=== PATIENT | male | born 1955 | race Caucasian/White ===

== ENCOUNTER 2017-03-16 06:12 | Day surgery (SDC) | payer BC ==
[2017-03-16] VITALS (11 sets, daily range): BP systolic 115–163; BP diastolic 76–101; PULSE 64–83; RESP 18–20; TEMP 97.5–98.9; O2SAT 92–95
[~2017-03-16] VITALS: Ht 182.9 cm; Wt 100.0 kg
[2017-03-16] MEDS ORDERED: LOSA25TA PO (06:50)
[2017-03-16] MEDS ORDERED: BOSW5TAB (06:50)
[2017-03-16] MEDS ORDERED: ASPI325T33 PO (06:50)
[2017-03-16] MEDS ORDERED: SIMV40TA PO (06:50)
[2017-03-16] MEDS ORDERED: HYDR-3516 PO (06:50)
[2017-03-16] MEDS ORDERED: CYCL10TA PO (06:50)
[2017-03-16] MEDS ORDERED: ONETAB26 (06:50)
[2017-03-16] MEDS ORDERED: CIME800T PO (06:50)
[2017-03-16] MEDS ORDERED: POVIDONE IODINE 5% (ANTISEPSIS KIT) 4 APPLICATIONS EACH NARE SCH (07:00)
[2017-03-16] MEDS ORDERED: VANCOMYCIN 1000 MG/NS 250 ML - implanted port/tunneled catheter IV SCH ×2 (07:00)
[2017-03-16] MEDS ORDERED: CHLORHEXIDINE GLUCONATE 2 % 1 PACK (2 CLOTHS) TOPICAL SCH (07:00)
[2017-03-16] MEDS ORDERED: MUPIROCIN 2% OINT 1 APPLIC/GM SYR EACH NARE SCH (07:00)
[2017-03-16] MEDS ORDERED: SODIUM CHLORIDE 0.9% 1000 ML IV SCH (07:00)
[2017-03-16] MEDS ORDERED: ceFAZolin 2 GM PREMIX 50 ML - implanted port/tunneled catheter insertion IV SCH (07:00)
[2017-03-16] MEDS ORDERED: LIDOCAINE HCL 1% 20 ML VIAL ONE (07:40)
[2017-03-16] MEDS ORDERED: MIDAZOLAM HCL 2 MG/2 ML VIAL ONE ×2 (07:54→12:57)
--- NOTE | 2017-03-16 09:10 | PD.RAD ---
Post CT Procedure Prog Note Pre Procedure Diagnosis: (1) Lung nodule Post Procedure Diagnosis: (1) Lung nodule Procedure Date: Mar 16, 2017 Supervising Radiologist: Doug Stevens Estimated blood loss: minimal Anesthesia: Conscious Sedation Plan of Activity Patient to Unit: [facility] Patient Condition: Good See PACS Report for procedural detail/treatment Biopsy Imaging Guidance: CT Side: Left Biopsy Procedure: Lung Site: left lower lobe Specimen: Core Biopsy Plan to [facility] for monitoring then discharge in 4 hours Doug Stevens MD Mar 16, 2017 09:10
--- NOTE | 2017-03-16 09:28 | RADRPT ---
EXAM DATE/TIME: 03/16/2017 08:37 [facility] COMPARISON: No previous studies available for comparison. INDICATIONS : Left lung biopsy SEDATION TIME: 30 minutes BIOPSY SITE: Left lung MEDICATION(S): 1.) 1.5 midazolam (Versed) IV 2.) 75 fentanyl (Sublimaze) IV DEVICE(S): 1.) 18 gauge Perez blunt needle 2.) 20 gauge Temno core biopsy needle MEDICAL HISTORY : None. SURGICAL HISTORY : None. ENCOUNTER: Initial ACUITY: 1 day PAIN SCORE: 0/10 LOCATION: Left lower chest A total of five core specimen(s) were obtained and sent to the laboratory for pathologic evaluation. PROCEDURE: 1. CT guided lung biopsy. 2. Conscious sedation with continuous EKG and oximetry monitoring. 3. EKG and oximetry remained stable throughout the procedure. Prior to the procedure informed consent was obtained. Any appropriate prior imaging studies were rev iewed. Using automated exposure control and adjustment of the mA and/or kV according to patient size, radiation dose was kept as low as reasonably achievable to obtain optimal diagnostic quality images. DICOM format image data is available electronically for review and comparison. The site was prepped in a sterile fashion. Full sterile technique was used, including cap, mask, charles rile gloves and gown and a large sterile sheet. Hand hygiene and 2% chlorhexidine and/or betadine/al cohol prep was utilized per protocol for cutaneous antisepsis. The skin and subcutaneous tissues wer e infiltrated with local anesthetic solution. With CT guidance the left lower lobe lung nodule was localized. Biopsy was performed using the prescr ibed needle as above. Adequate hemostasis was obtained with compression at the puncture site. Follow-up CT scan reveals no pneumothorax. There is mild perilesional hemorrhage. Conscious sedation was performed with the prescribed dosages and duration as above in the presence of an independent trained radiology nurse to assist in the monitoring of the patient. EKG and oximetry remained stable throughout the procedure. The patient tolerated the procedure well and there were no complications. The patient was sent to Radiology Outpatient Unit in stable condition. CONCLUSION: Uncomplicated CT guided biopsy of the left lower lobe nodule. Doug Stevens MD on March 16, 2017 at 9:25 Board Certified Radiologist. This report was verified electronically.
[2017-03-16] MEDS ORDERED: ACETAMINOPHEN/HYDROcodone 325 MG/5 MG TAB PO ONE (10:00)
--- NOTE | 2017-03-16 10:57 | RADRPT ---
EXAM DATE/TIME: 03/16/2017 10:29 [facility] COMPARISON: No previous studies available for comparison. INDICATIONS : Evaluate for pneumothorax. Patient had a left lung biopsy. MEDICAL HISTORY : None. SURGICAL HISTORY : None. ENCOUNTER: Initial ACUITY: 1 day PAIN SCORE: 10 LOCATION: Left chest FINDINGS: A single frontal expiratory view of the chest was performed. The lungs are symmetrically aerated and clear. No evidence of pneumothorax. Mediastinal structures are in the midline. Multiple pulmonary nodules again noted. CONCLUSION: Multiple pulmonary nodules. No evidence of pneumothorax. Gerardo Smith MD on March 16, 2017 at 10:54 Board Certified Radiologist. This report was verified electronically.
[2017-03-16] MEDS ORDERED: SODIUM CHLORIDE 0.9% FLUSH 10 ML FLUSH IVF PRN (13:30)
--- NOTE | 2017-03-16 13:30 | PD.RAD ---
Post Procedure Progress Note Pre Procedure Diagnosis: (1) Lung nodule Post Procedure Diagnosis: (1) Lung nodule Procedure Date: Mar 16, 2017 Supervising Radiologist: Reinaldo Mcdermott Estimated blood loss: 2cc Anesthesia: Local, Conscious Sedation Plan of Activity Patient to Unit: [facility] Patient Condition: Fair Additional Comments: Port placed via the right IJ catheter tip is in the SVC OK for use. Full dictated report to follow See PACS Report for procedural detail/treatment Reinaldo Mcdermott MD Mar 16, 2017 13:30
--- NOTE | 2017-03-16 14:12 | RADRPT ---
EXAM DATE/TIME: 03/16/2017 13:52 [facility] COMPARISON: No previous studies available for comparison. INDICATIONS : Patient presents with small cell lung cancer in need of port placement for treatment. MEDICAL HISTORY : HTN GERD Sleap apnea Hypercholesterolemia SURGICAL HISTORY : Right chest tube Rt knee surgery Colonoscopy ENCOUNTER: Initial ACUITY: 1 month PAIN SCORE: 0/10 LOCATION: N/A FLUORO TIME: 0.5 minutes IMAGE SERIES: SEDATION TIME: 30 minutes ACCESS: Right internal jugular vein SEDATION: 1.) 1.5 mg midazolam (Versed) IV 2.) 50 mcg fentanyl (Sublimaze) IV Prophylactic antibiotics were administered with appropriate pre-procedure timing. Vancomycin within 2 hours of procedure, Ancef (or alternative) within 1 hour of procedure. DEVICE: 1. 8 Estonian single lumen Bard Power Port PROCEDURE : 1. Continuous pulse oximetry and EKG monitoring. 2. Intravenous conscious sedation. 3. Ultrasound guidance for venous access. 4. Fluoroscopic guided implantable central venous port placement. The patient was placed supine. The neck was prepped in sterile fashion. Full sterile technique was u sed, including cap, mask, sterile gloves and gown, and a large sterile sheet. Hand hygiene and 2% ch lorhexidine Betadine was utilized per protocol for cutaneous antisepsis with appropriate dry time for site. Sterile gel and sterile probe cover were utilized for ultrasound guidance. The skin and sub cutaneous tissues were infiltrated with local anesthetic solution. Under direct ultrasound guidance, central venous access was accomplished in the targeted vessel. The ultrasound images depicting access guidance were stored and saved to PACS for permanent record. A s ubcutaneous pocket was created using blunt dissection. The port was introduced to the pocket. The c atheter tubing was fed through a subcutaneous tunnel to the venotomy site. The catheter tubing was c ut to a suitable length and then was introduced through a valved Peel-Away sheath and positioned with catheter tubing tip at the cavo-atrial junction level. The pocket incision was closed with subcutic ular Vicryl suture. Steri-Strips were applied. The port was flushed and locked with heparin solutio n per protocol. Sterile dressing was applied to the site. The patient tolerated the procedure well. Conscious sedation was performed with the prescribed dosages and duration as above in the presence of an independent trained radiology nurse to assist in the monitoring of the patient. EKG and oximetry remained stable throughout the procedure. The patient tolerated the procedure well and there were no complications. The patient was sent to post anesthesia recovery in stable condition. CONCLUSION: Uncomplicated ultrasound and fluoroscopic guided implanted central venous port catheter placement as described in detail above. An 8 Estonian Power port was placed. Reinaldo Mcdermott MD on March 16, 2017 at 14:01 Board Certified Radiologist. This report was verified electronically.
--- NOTE | 2017-03-16 14:13 | RADRPT ---
EXAM DATE/TIME: 03/16/2017 13:44 [facility] COMPARISON: CT NEEDLE BIOPSY LUNG, LEFT, March 16, 2017, 8:37. CHEST EXPIRATION ONLY, March 16, 2017, 10:29. INDICATIONS : Evaluate for pneumothorax. Patient had a left lung biopsy. MEDICAL HISTORY : None. SURGICAL HISTORY : None. ENCOUNTER: Subsequent ACUITY: 1 day PAIN SCORE: Non-responsive. LOCATION: Bilateral chest FINDINGS: A single frontal expiratory view of the chest was performed. The lungs are symmetrically aerated wit h bilateral lung masses noted. No evidence of pneumothorax. Mediastinal structures are in the midli ne. The Bejgct-i-Ypwf is in good position. The cardio-mediastinal contours and bronchopulmonary markings are unremarkable for an expiratory exam . Osseous structures are intact. CONCLUSION: 1. No pneumothorax identified following left lung biopsy. 2. Ofziyv-u-Zwfh in good position. 3. Bilateral lung masses. Reinaldo Mcdermott MD on March 16, 2017 at 14:09 Board Certified Radiologist. This report was verified electronically.
== END 2017-03-16 15:30 | disposition home or self-care (01) ==
LOC: HROP 06:12 → HRIP 06:20 → HROP 15:30
PROVIDERS: ATTEND Internal Medicine Hematology & Oncology
DX: C34.90 Malignant neoplasm of unspecified part of unspecified bronchus or lung (principal); I10 Essential (primary) hypertension; K21.9 Gastro-esophageal reflux disease without esophagitis; E78.00 Pure hypercholesterolemia, unspecified; G47.30 Sleep apnea, unspecified
CPT/HCPCS: 32405; 36561; 71045; 76937; 77001; 77012; 88305; 88341; 88342; 99152; 99153; C1788; J0690; J1642; J2250; J3010; J3370; J7030; J7050

== ENCOUNTER 2017-08-25 06:00 | Day surgery (SDC) | payer BC ==
[~2017-08-25] VITALS: Ht 182.9 cm; Wt 100.0 kg
[~2017-08-25 06:00] MED LIST: AMLO5TAB2 PO; ASPI325T33 PO; BOSW5TAB; DICL75TA PO; HYDR-3516 PO; LOSA25TA PO; ONETAB26; PRIL20TA2; SIMV40TA PO
[2017-08-25 07:12] VITALS: BP 158/95; PULSE 74; RESP 17; TEMP 98.5; O2SAT 95
[2017-08-25 07:33] LABS: BASOPHIL # 0.1 TH/MM3 (0-0.2); BASOPHIL % 1.2 % (0.0-2.0); EOSINOPHIL # 0.3 TH/MM3 (0-0.4); HEMATOCRIT 40.9 % (39.0-51.0); HEMOGLOBIN 13.9 GM/DL (13.0-17.0); LYMPH % 30.5 % (9.0-44.0); LYMPHOCYTE # 2.2 TH/MM3 (1.0-4.8); MEAN CELL VOLUME 88.5 FL (80.0-100.0); MEAN CORPUSCULAR HEMOGLOBIN 30.1 PG (27.0-34.0); MEAN CORPUSCULAR HGB CONC 34.1 % (32.0-36.0); MEAN PLATELET VOLUME 7.2 FL (7.0-11.0); MONO % 7.8 % (0.0-8.0); MONOCYTE # 0.6 TH/MM3 (0-0.9); NEUT % 56.5 % (16.0-70.0); PLATELET COUNT 427 TH/MM3 (150-450); RED BLOOD COUNT 4.62 MIL/MM3 (4.50-5.90); RED CELL DISTRIBUTION WIDTH 13.6 % (11.6-17.2); WHITE BLOOD COUNT 7.1 TH/MM3 (4.0-11.0)
[2017-08-25] MEDS: SODIUM CHLORIDE 0.9% 1000 ML IV SCH ×2 (07:45→08:15)
[2017-08-25] MEDS: ceFAZolin 2 GM PREMIX 50 ML - implanted port removal IV SCH ×2 (08:13→08:31)
[2017-08-25] MEDS ORDERED: LIDOCAINE 1%/EPINEPHrine 1:100,000 SOLN 30 ML VIAL ONE (08:32)
[2017-08-25] MEDS ORDERED: diphenhydrAMINE HCL 50 MG/ML VIAL ONE (08:48)
--- NOTE | 2017-08-25 09:02 | PD.RAD ---
Post Procedure Progress Note Pre Procedure Diagnosis: (1) Lung cancer Post Procedure Diagnosis: (1) Lung cancer Procedure Date: Aug 25, 2017 Supervising Radiologist: Crescencio Portillo Proceduralist/Assist: Michelle Ospina RT(R), Jaelyn Craft RT(R) Anesthesia: Local (Pt request) Plan of Activity Patient to Unit: [facility] Patient Condition: Good See PACS Report for procedural detail/treatment Central Venous Access Device Procedure 1 Right Internal Jugular Infusaport Removal single lumen Divehi: 8 Crescencio Portillo MD Aug 25, 2017 09:02
[2017-08-25 09:16] VITALS: BP 131/86; PULSE 76; RESP 18; TEMP 98.1; O2SAT 92
[2017-08-25 09:46] VITALS: BP 128/84; PULSE 75; RESP 17; O2SAT 94
--- NOTE | 2017-08-26 13:34 | RADRPT ---
INDICATIONS: Patient presents with lung cancer and no longer in need of port. CLINICAL DATA: This is the patient's initial encounter. Patient reports that signs and symptoms have been present for 7 - 11 months and indicates a pain score of 0/10. Location: Chest, Laterality: MEDICAL/SURGICAL HISTORY: Hypertension. Hiatal hernia. Carcinoma, lung. GERD High Cholestero l . Right knee surgery Lung biopsy Port COMPARISON: No prior exams available for comparison. FLUORO TIME (min): IMAGE SERIES: ACCESS SITE: SEDATION TIME (min): CONTRAST (cc): MEDICATION(S): 25mg Benadryl DEVICE(S): . . PROCEDURE: 1. Removal of Whgien-v-rrvk. 2. Conscious sedation with continuous EKG and oximetry monitoring. The risk, benefits and potential complications of Dxpppn-h-Zval removal were discussed. Written conse nt was obtained. The patient was placed supine. The chest wall was prepped in sterile fashion. Full sterile techniqu e was used, including cap, mask, sterile gloves and gown, and a large sterile sheet. Hand hygiene an d 2% chlorhexidine and/or Betadine/alcohol prep was utilized per protocol for cutaneous antisepsis. The skin and subcutaneous tissues were infiltrated with local anesthetic solution. A small incision w as made, the subcutaneous pocket was opened. The port was dissected from the subcutaneous tissues and easily removed in one piece. The pocket incision was closed with subcuticular Vicryl suture. Steri -Strips were applied. Conscious sedation was performed with the prescribed dosages and duration as above in the presence of an independent trained radiology nurse to assist in the monitoring of the patient. EKG and oximetry remained stable throughout the procedure. The patient tolerated the procedure well and there were no complications. The patient was sent to post anesthesia recovery in stable condition. CONCLUSION: 1. Uncomplicated port removal as above. Electronically signed by: Crescencio Portillo MD 08/26/2017 1:33 PM EDT
== END 2017-08-25 10:00 | disposition home or self-care (01) ==
LOC: HROP 06:00 → HRIP 06:50 → HROP 10:00
PROVIDERS: ATTEND Internal Medicine Hematology & Oncology
DX: Z45.2 Encounter for adjustment and management of vascular access device (principal); C34.90 Malignant neoplasm of unspecified part of unspecified bronchus or lung; Z79.899 Other long term (current) drug therapy; Z79.82 Long term (current) use of aspirin
CPT/HCPCS: 36590; 85025; 85610; 85730; J0690; J1200; J7030; 99211; G0463